=== PATIENT | female | born 1965 | race Caucasian/White ===

== ENCOUNTER → 2021-07-20 12:48 | Outpatient (CLI) | payer MEDICARE, MEDICAID, SELFPAY | PROVIDERS: PCP Family Medicine; Referring Provider Surgery; Visit Provider Family Medicine | DX: L97.825 Non-pressure chronic ulcer of other part of left lower leg with muscle involvement without evidence of necrosis (principal); L97.815 Non-pressure chronic ulcer of other part of right lower leg with muscle involvement without evidence of necrosis; L08.9 Local infection of the skin and subcutaneous tissue, unspecified; M79.661 Pain in right lower leg; M79.662 Pain in left lower leg; L20.9 Atopic dermatitis, unspecified; G89.29 Other chronic pain; M54.9 Dorsalgia, unspecified; Z79.891 Long term (current) use of opiate analgesic; Z72.0 Tobacco use | CPT/HCPCS: 11042; 87070; 87075; 87077; 87102; 87116; 87147; 87185; 87186; 87205; 87206; 99204; 99213 ==

== ENCOUNTER → 2021-08-03 11:33 | Outpatient (CLI) | payer MEDICARE, MEDICAID, SELFPAY | PROVIDERS: PCP Family Medicine; Referring Provider Family Medicine; Visit Provider Family Medicine | DX: L97.825 Non-pressure chronic ulcer of other part of left lower leg with muscle involvement without evidence of necrosis (principal); L97.815 Non-pressure chronic ulcer of other part of right lower leg with muscle involvement without evidence of necrosis; M79.661 Pain in right lower leg; M79.662 Pain in left lower leg; L08.89 Other specified local infections of the skin and subcutaneous tissue; B95.61 Methicillin susceptible Staphylococcus aureus infection as the cause of diseases classified elsewhere; L20.9 Atopic dermatitis, unspecified; G89.29 Other chronic pain; M54.9 Dorsalgia, unspecified; Z79.891 Long term (current) use of opiate analgesic; Z72.0 Tobacco use | CPT/HCPCS: 11042; 87070; 87075; 87077; 87147; 87186; 87205; 99212; 99213 ==

== ENCOUNTER → 2021-08-17 14:03 | Outpatient (CLI) | payer MEDICARE, MEDICAID, SELFPAY | PROVIDERS: PCP Family Medicine; Referring Provider Family Medicine; Visit Provider Family Medicine | DX: L97.825 Non-pressure chronic ulcer of other part of left lower leg with muscle involvement without evidence of necrosis (principal); L97.815 Non-pressure chronic ulcer of other part of right lower leg with muscle involvement without evidence of necrosis; M79.661 Pain in right lower leg; M79.662 Pain in left lower leg; L20.9 Atopic dermatitis, unspecified; G89.29 Other chronic pain; M54.9 Dorsalgia, unspecified; Z79.891 Long term (current) use of opiate analgesic; Z72.0 Tobacco use | CPT/HCPCS: 99212; 99213 ==

== ENCOUNTER → 2021-09-07 13:58 | Outpatient (CLI) | payer MEDICARE, MEDICAID, SELFPAY | PROVIDERS: PCP Family Medicine; Referring Provider Family Medicine; Visit Provider Family Medicine | DX: L97.129 Non-pressure chronic ulcer of left thigh with unspecified severity (principal); S81.801A Unspecified open wound, right lower leg, initial encounter; S81.802A Unspecified open wound, left lower leg, initial encounter; S71.102A Unspecified open wound, left thigh, initial encounter; Z79.891 Long term (current) use of opiate analgesic; L20.9 Atopic dermatitis, unspecified; F17.210 Nicotine dependence, cigarettes, uncomplicated | CPT/HCPCS: 87070; 87075; 87077; 87147; 87186; 87205; 99213 ==

== ENCOUNTER → 2021-09-07 16:44 | Outpatient (ROUT) | payer MEDICARE, SELFPAY | PROVIDERS: PCP Family Medicine; Visit Provider Dermatology | DX: L97.129 Non-pressure chronic ulcer of left thigh with unspecified severity (principal) | CPT/HCPCS: 87070; 87075; 87205 ==

== ENCOUNTER → 2021-09-28 14:08 | Outpatient (CLI) | payer MEDICARE, MEDICAID, SELFPAY | PROVIDERS: PCP Family Medicine; Referring Provider Family Medicine; Visit Provider Family Medicine | DX: Z79.891 Long term (current) use of opiate analgesic (principal); L20.9 Atopic dermatitis, unspecified; L08.89 Other specified local infections of the skin and subcutaneous tissue; L97.825 Non-pressure chronic ulcer of other part of left lower leg with muscle involvement without evidence of necrosis; L97.815 Non-pressure chronic ulcer of other part of right lower leg with muscle involvement without evidence of necrosis; L97.125 Non-pressure chronic ulcer of left thigh with muscle involvement without evidence of necrosis; F17.210 Nicotine dependence, cigarettes, uncomplicated | CPT/HCPCS: 99213 ==

== ENCOUNTER → 2021-10-25 12:31 | Outpatient (ROUT) | payer MEDICARE, SELFPAY | PROVIDERS: PCP Family Medicine; Visit Provider Dermatology | DX: L97.819 Non-pressure chronic ulcer of other part of right lower leg with unspecified severity (principal); L97.129 Non-pressure chronic ulcer of left thigh with unspecified severity | CPT/HCPCS: 87070; 87075; 87077; 87147; 87186; 87205 ==

== ENCOUNTER → 2021-11-01 17:35 | Outpatient (ROUT) | payer MEDICARE, SELFPAY | PROVIDERS: PCP Family Medicine; Visit Provider Dermatology | DX: L08.9 Local infection of the skin and subcutaneous tissue, unspecified (principal) | CPT/HCPCS: 87070; 87075; 87077; 87147; 87186; 87205 ==

== ENCOUNTER → 2021-11-02 13:36 | Outpatient (CLI) | payer MEDICARE, SELFPAY | PROVIDERS: PCP Family Medicine; Referring Provider Family Medicine; Visit Provider Family Medicine | DX: L08.89 Other specified local infections of the skin and subcutaneous tissue (principal); L97.815 Non-pressure chronic ulcer of other part of right lower leg with muscle involvement without evidence of necrosis; L97.825 Non-pressure chronic ulcer of other part of left lower leg with muscle involvement without evidence of necrosis; L20.9 Atopic dermatitis, unspecified; L98.1 Factitial dermatitis; Z79.891 Long term (current) use of opiate analgesic; Z72.0 Tobacco use; M79.605 Pain in left leg | CPT/HCPCS: 29581; 87070; 87075; 87077; 87147; 87186; 87205; 99213 ==

== ENCOUNTER → 2021-11-09 13:10 | Outpatient (CLI) | payer MEDICARE, SELFPAY | PROVIDERS: PCP Family Medicine; Referring Provider Family Medicine; Visit Provider Family Medicine | DX: L97.815 Non-pressure chronic ulcer of other part of right lower leg with muscle involvement without evidence of necrosis (principal); L97.825 Non-pressure chronic ulcer of other part of left lower leg with muscle involvement without evidence of necrosis; L97.125 Non-pressure chronic ulcer of left thigh with muscle involvement without evidence of necrosis; L98.1 Factitial dermatitis; B95.61 Methicillin susceptible Staphylococcus aureus infection as the cause of diseases classified elsewhere; L20.9 Atopic dermatitis, unspecified; Z79.891 Long term (current) use of opiate analgesic; Z72.0 Tobacco use | CPT/HCPCS: 97597; 99213 ==

== ENCOUNTER 2022-10-27 15:32 | Inpatient (IN) | payer MEDICARE, MEDICAID, SELFPAY ==
[2022-10-27] VITALS (16 sets, daily range): BP systolic 135–163; BP diastolic 67–104; PULSE 74–98; RESP 14–24; TEMP 36.4–37; O2SAT 93–97; BMI 22.6; BMI 23.3
--- NOTE | 2022-10-27 15:53 | DI.RAD.S_ITS ---
PROCEDURE: XR TIBIA FUBULA RT 2V INDICATIONS: Soft tissue wound, please evaluate for osteomyelitis. TECHNIQUE: 2 views of the tibia and fibula were acquired. COMPARISON: [facility], CR, XR TIBIA FIBULA RIGHT, 06/21/2022, 11:41. FINDINGS: Bones: No fractures or dislocations. No suspicious bony lesions. Soft tissues: Soft tissue irregularity can be seen involving the medial aspect of the mojica. No radiopaque foreign bodies are seen. IMPRESSION: Soft tissue wound, without latia bony change. If there is strong suspicion for developing osteomyelitis, please consider a dedicated MRI without and with contrast for further evaluation (assuming that there is no contraindication to MRI). Dictated by: Carlos Otero M.D. on 10/27/2022 at 16:14 Approved by: Carlos Otero M.D. on 10/27/2022 at 16:15
--- NOTE | 2022-10-27 16:28 | DI.RAD.S_ITS ---
PROCEDURE: XR CHEST 1V INDICATIONS: feeling ill, likely COPD TECHNIQUE: One view of the chest was acquired. COMPARISON: [facility], CHEST 2 VIEW, 11/18/2009, 9:37. [facility], CHEST 2 VIEW, 09/12/2009, 14:51. FINDINGS: Surgical changes and devices: None. Lungs and pleura: Lungs are clear. No pleural effusions or pneumothorax. Mediastinum: Mediastinal contours appear normal. Heart size is normal. Bones and chest wall: No suspicious bony lesions. Overlying soft tissues appear unremarkable. IMPRESSION: No acute cardiopulmonary process. Dictated by: Karl Zuniga M.D. on 10/27/2022 at 17:58 Approved by: Karl Zuniga M.D. on 10/27/2022 at 17:58
--- NOTE | 2022-10-27 16:51 | ED.WOUNDLAC ---
HPI - Wound/Laceration <Luz Mccurdy PA-C - Last Filed: 10/27/22 18:34> General Chief Complaint: Wound/Laceration Stated Complaint: infected ulcer rt lower leg,sent by [facility] Time Seen by Provider: 10/27/22 16:18 Source: patient Mode of arrival: Ambulatory History of Present Illness HPI narrative: Patient is a 57-year-old female with a history of eczema. She presents with a right lower extremity wound x1.5 years. She reports a history of many areas of eczema that turn into a chronic wounds. This wound has been managed in [place] [employer] by a wound care clinic, although she lives in [place]. Most recently, she received 2 courses of Bactrim for wound infection without improvement. She reports the wound clinic has been using some sort of honey impregnated product covered with Xeroform gauze over the wound. Over the past several days, she is been feeling ill with chills and generalized achiness. She took 2 home COVID tests, both of which were negative. She has a pain management plan with a spine doctor for her chronic back pain. She is a daily smoker. Related Data Home Medications Medication Instructions Recorded Confirmed [BLEACH BATH 5%] 5 % Not Applicable 3XW ##0 01/28/16 10/27/22 acetaminophen 500 mg tablet 500 mg PO TID-QID PRN Pain (Scale 01/28/16 10/27/22 (Tylenol Extra Strength) Score 1-3) ##0 acyclovir 400 mg tablet 400 mg PO QAM ##0 01/28/16 10/27/22 cetirizine 10 mg tablet 10 mg PO QAM ##0 01/28/16 10/27/22 mupirocin 2 % topical ointment 1 applic PRN PRN Rash ##0 01/28/16 10/27/22 pseudoephedrine HCl 30 mg tablet 120 mg PO QAM ##0 01/28/16 10/27/22 albuterol sulfate 90 mcg/actuation 2 puff inhalation Q4-6H PRN 10/27/22 10/27/22 aerosol inhaler Shortness Of Breath Or Wheezing cyclobenzaprine 10 mg tablet 10 mg PO BID PRN Pain (Scale Score 10/27/22 10/27/22 4-6) duloxetine 30 mg capsule,delayed 90 mg PO DAILY 10/27/22 10/27/22 release gabapentin 600 mg tablet 600 mg PO Q6H 10/27/22 10/27/22 meloxicam 15 mg tablet 15 mg PO DAILY 10/27/22 10/27/22 oxycodone-acetaminophen 10 mg-325 1 tab PO Q4-6H PRN pain 10/27/22 10/27/22 mg tablet tizanidine 4 mg tablet 4 mg PO BEDTIME 10/27/22 10/27/22 Allergies Allergy/AdvReac Type Severity Reaction Status Date / Time Iodinated Contrast Media Allergy Severe Anaphylaxis Verified 10/27/22 18:31 citric acid [CITRIC ACID] Allergy Mild IMMEDIATLEY Verified 10/27/22 16:56 EXACERBATES EXCEMA ibuprofen [IBUPROFEN] Allergy Mild BREATHING Verified 10/27/22 16:56 COMPLICATIONS Review of Systems <Luz Mccurdy PA-C - Last Filed: 10/27/22 18:34> Review of Systems ROS Unobtainable: All systems reviewed & are unremarkable except as noted in HPI and below Patient History <Luz Mccurdy PA-C - Last Filed: 10/27/22 18:34> Social History Smoking Status: Current every day smoker Smoking Status: Current every day smoker tobacco type: cigarettes Substance Use Type: does not use Exam <Luz Mccurdy PA-C - Last Filed: 10/27/22 18:34> Narrative Exam Narrative: GENERAL: 57 year old patient appears stated age. Well-developed patient, in no distress. NEURO: AOx3. HEAD: Atraumatic. Normocephalic. EYES: Pupils equal round and reactive. Extraocular motions intact. No scleral icterus. No injection or drainage. ENT: Nose without bleeding or purulent drainage. Airway patent. NECK: Trachea midline. Non tender CARDIOVASCULAR: Regular rate and rhythm with systolic murmur, which patient states she knows about. RESPIRATORY: Breath sounds equal and course bilaterally. No wheezes, rales, or rhonchi. EXTREMITIES: Significant chronic deep wounds from the ankle to 2-3 inches below the knee. Visible muscle sliding through a deep area over the medial lower extremity when she flexes her ankle. Healed areas over her foot with karo skin, 1+ edema. Strong DP pulse. Patient reports foot is always tingly. Initial Vital Signs Initial Vital Signs: Vital Signs Temperature 98.6 F 10/27/22 15:43 Pulse Rate 85 10/27/22 15:43 Respiratory Rate 16 10/27/22 15:43 Blood Pressure 152/82 H 10/27/22 15:43 Pulse Oximetry 93 10/27/22 15:43 Oxygen Delivery Method Room Air 10/27/22 15:43 <Anette Witt DO - Last Filed: 10/28/22 04:36> Initial Vital Signs Initial Vital Signs: Vital Signs Temperature 98.6 F 10/27/22 15:43 Pulse Rate 85 10/27/22 15:43 Respiratory Rate 16 10/27/22 15:43 Blood Pressure 152/82 H 10/27/22 15:43 Pulse Oximetry 93 10/27/22 15:43 Oxygen Delivery Method Room Air 10/27/22 15:43 Course <Luz Mccurdy PA-C - Last Filed: 10/27/22 18:34> Orders Ordered: ED Orders 10/27/22 20:41 CT LE RT wo con Stat Acetaminophen (Acetaminophen 325 Mg Tablet) 650 mg PO Q6H PRN PRN Reason: Fever/Mild Pain (1-3) Hydrocodone Bitart/Acetaminophen (Hydrocodone/Acet 5/325 Tablet) 1 tab PO Q4H PRN PRN Reason: Pain, Moderate (4-6) Last Admin: 10/27/22 23:47 Dose: 1 tab Documented By: CT Enoxaparin Sodium (Enoxaparin 30 Mg/0.3 Ml Syringe) 30 mg SUBCUT DAILY MELL Gabapentin (Gabapentin 600 Mg Tablet) 600 mg PO Q6H MELL Last Admin: 10/28/22 01:30 Dose: 600 mg Documented By: CT Hydromorphone HCl (Hydromorphone 1 Mg Inj) 1 mg IV Q4H PRN PRN Reason: Pain, Severe (7-10) Last Admin: 10/28/22 04:21 Dose: 1 mg Documented By: CT Sodium Chloride (Normal Saline 0.45%) 1,000 mls @ 100 mls/hr IV CONT MELL Last Admin: 10/28/22 00:10 Dose: 100 mls/hr Documented By: CT Cefepime HCl 1 gm/ Sodium (Chloride) 100 mls @ 200 mls/hr IV Q12H MELL Last Infusion: 10/28/22 00:40 Dose: 0 mls/hr Documented By: Admin: 10/28/22 00:10 Dose: 200 mls/hr Documented By: CT Vancomycin HCl (Vancomycin) 1,000 mg in 200 mls @ 200 mls/hr IV Q12H MELL Loratadine (Loratadine 10 Mg Tablet) 10 mg PO DAILY MELL Morphine Sulfate (Morphine 2 Mg/Ml Inj) 1 mg IV Q4HR PRN PRN Reason: Pain, Moderate (4-6) Last Admin: 10/28/22 01:35 Dose: 1 mg Documented By: CT Naloxone HCl (Naloxone 0.4 Mg/Ml Vial) 0.2 mg IV Q2MIN PRN PRN Reason: Opiate Reversal Oxycodone HCl (Oxycodone Ir 5 Mg Tablet) 5 mg PO Q4H PRN PRN Reason: Pain, Severe (7-10) Last Admin: 10/28/22 02:42 Dose: 5 mg Documented By: CT Oxycodone/Acetaminophen (Oxycodone/Acetaminophen 5/325 Tablet) 1 tab PO Q4H PRN PRN Reason: Pain, Severe (7-10) Last Admin: 10/28/22 02:42 Dose: 1 tab Documented By: CT Discontinued Medications Vancomycin HCl/Dextrose (Vancomycin) 1,500 mg in 300 mls @ 200 mls/hr IV NOW ONE Stop: 10/27/22 19:55 Last Infusion: 10/27/22 21:14 Dose: 0 mls/hr Documented By: Admin: 10/27/22 19:44 Dose: 200 mls/hr Documented By: AIMEE Cefepime HCl 2 gm/ Sodium (Chloride) 100 mls @ 200 mls/hr IV NOW ONE Stop: 10/27/22 18:27 Last Infusion: 10/27/22 19:42 Dose: 0 mls/hr Documented By: Admin: 10/27/22 19:12 Dose: 200 mls/hr Documented By: CLARIBEL Lidocaine HCl (Lidocaine Viscous 2% 100 Ml Solution) 15 ml MM NOW ONE Stop: 10/27/22 17:34 Last Admin: 10/27/22 17:57 Dose: 15 ml Documented By: AIMEE Oxycodone HCl (Oxycodone Ir 5 Mg Tablet) 10 mg PO NOW ONE Stop: 10/27/22 16:29 Last Admin: 10/27/22 16:55 Dose: 10 mg Documented By: AIMEE Oxycodone HCl (Oxycodone Ir 5 Mg Tablet) 10 mg PO NOW ONE Stop: 10/27/22 21:37 Last Admin: 10/27/22 21:41 Dose: 10 mg Documented By: AIMEE Vital Signs Vital signs: Vital Signs - 8 hr 10/27/22 21:01 10/27/22 21:02 10/27/22 21:02 Pulse Rate 84 81 Respiratory Rate 20 21 Blood Pressure 135/67 Pulse Oximetry 95 94 10/27/22 21:30 10/27/22 21:30 Pulse Rate 79 Respiratory Rate 17 Blood Pressure 141/68 H Pulse Oximetry 93 <Anette Witt DO - Last Filed: 10/28/22 04:36> Orders Ordered: ED Orders 10/27/22 20:41 CT LE RT wo con Stat Acetaminophen (Acetaminophen 325 Mg Tablet) 650 mg PO Q6H PRN PRN Reason: Fever/Mild Pain (1-3) Hydrocodone Bitart/Acetaminophen (Hydrocodone/Acet 5/325 Tablet) 1 tab PO Q4H PRN PRN Reason: Pain, Moderate (4-6) Last Admin: 10/27/22 23:47 Dose: 1 tab Documented By: CT Enoxaparin Sodium (Enoxaparin 30 Mg/0.3 Ml Syringe) 30 mg SUBCUT DAILY MELL Gabapentin (Gabapentin 600 Mg Tablet) 600 mg PO Q6H MELL Last Admin: 10/28/22 01:30 Dose: 600 mg Documented By: CT Hydromorphone HCl (Hydromorphone 1 Mg Inj) 1 mg IV Q4H PRN PRN Reason: Pain, Severe (7-10) Last Admin: 10/28/22 04:21 Dose: 1 mg Documented By: CT Sodium Chloride (Normal Saline 0.45%) 1,000 mls @ 100 mls/hr IV CONT MELL Last Admin: 10/28/22 00:10 Dose: 100 mls/hr Documented By: CT Cefepime HCl 1 gm/ Sodium (Chloride) 100 mls @ 200 mls/hr IV Q12H MELL Last Infusion: 10/28/22 00:40 Dose: 0 mls/hr Documented By: Admin: 10/28/22 00:10 Dose: 200 mls/hr Documented By: LENNY Vancomycin HCl (Vancomycin) 1,000 mg in 200 mls @ 200 mls/hr IV Q12H MELL Loratadine (Loratadine 10 Mg Tablet) 10 mg PO DAILY MELL Morphine Sulfate (Morphine 2 Mg/Ml Inj) 1 mg IV Q4HR PRN PRN Reason: Pain, Moderate (4-6) Last Admin: 10/28/22 01:35 Dose: 1 mg Documented By: LENNY Naloxone HCl (Naloxone 0.4 Mg/Ml Vial) 0.2 mg IV Q2MIN PRN PRN Reason: Opiate Reversal Oxycodone HCl (Oxycodone Ir 5 Mg Tablet) 5 mg PO Q4H PRN PRN Reason: Pain, Severe (7-10) Last Admin: 10/28/22 02:42 Dose: 5 mg Documented By: LENNY Oxycodone/Acetaminophen (Oxycodone/Acetaminophen 5/325 Tablet) 1 tab PO Q4H PRN PRN Reason: Pain, Severe (7-10) Last Admin: 10/28/22 02:42 Dose: 1 tab Documented By: LENNY Discontinued Medications Vancomycin HCl/Dextrose (Vancomycin) 1,500 mg in 300 mls @ 200 mls/hr IV NOW ONE Stop: 10/27/22 19:55 Last Infusion: 10/27/22 21:14 Dose: 0 mls/hr Documented By: Admin: 10/27/22 19:44 Dose: 200 mls/hr Documented By: AIMEE Cefepime HCl 2 gm/ Sodium (Chloride) 100 mls @ 200 mls/hr IV NOW ONE Stop: 10/27/22 18:27 Last Infusion: 10/27/22 19:42 Dose: 0 mls/hr Documented By: Admin: 10/27/22 19:12 Dose: 200 mls/hr Documented By: CLARIBEL Lidocaine HCl (Lidocaine Viscous 2% 100 Ml Solution) 15 ml MM NOW ONE Stop: 10/27/22 17:34 Last Admin: 10/27/22 17:57 Dose: 15 ml Documented By: AIMEE Oxycodone HCl (Oxycodone Ir 5 Mg Tablet) 10 mg PO NOW ONE Stop: 10/27/22 16:29 Last Admin: 10/27/22 16:55 Dose: 10 mg Documented By: AIMEE Oxycodone HCl (Oxycodone Ir 5 Mg Tablet) 10 mg PO NOW ONE Stop: 10/27/22 21:37 Last Admin: 10/27/22 21:41 Dose: 10 mg Documented By: AIMEE Vital Signs Vital signs: Vital Signs - 8 hr 10/27/22 21:01 10/27/22 21:02 10/27/22 21:02 Pulse Rate 84 81 Respiratory Rate 20 21 Blood Pressure 135/67 Pulse Oximetry 95 94 10/27/22 21:30 10/27/22 21:30 Pulse Rate 79 Respiratory Rate 17 Blood Pressure 141/68 H Pulse Oximetry 93 MDM - Wound/Laceration <Luz Mccurdy PA-C - Last Filed: 10/27/22 18:34> Lab Data 10/27/22 17:26 10/27/22 17:26 Labs: Lab Results 10/27/22 10/27/22 10/27/22 Range/Units 17:10 17:10 17:26 WBC 7.6 (4.5-11.0) X10^3/uL RBC 5.43 H (4.0-5.2) X10^6/uL Hgb 9.0 L (12.0-16.0) g/dL Hct 32.3 L (36-46) % MCV 59.5 L (80-100) fL MCH 16.6 L (26-34) PG MCHC 27.9 L (30-36) % RDW 21.9 H (11.6-14.8) % Plt Count 550 H (150-400) X10^3/uL Neut % (Auto) 65.1 (50-75) % Lymph % (Auto) 24.6 L (25-40) % [place] % (Auto) 8.6 (3-14) % Eos % (Auto) 0.8 L (2-4) % Baso % (Auto) 0.9 (0-2) % Neut # (Auto) 4900 (8773-3349) /uL Lymph # (Auto) 1900 (4288-3222) /uL [place] # (Auto) 600 (0-900) /uL Eos # (Auto) 100 (0-450) /uL Baso # (Auto) 100 (0-100) /uL Plt Morphology Comment RBC Morphology See below Polychromasia 1+ H Hypochromasia 1+ H Anisocytosis 2+ H Microcytosis 2+ H Macrocytosis 1+ H Spherocytes 1+ H Target Cells 2+ H Rouleaux 1+ H ESR 44 H (0-20) MM/HR Sodium (137-145) mmol/L Potassium (3.4-5.1) mmol/L Chloride (98-107) mmol/L Carbon Dioxide (22-32) mmol/L BUN (7-17) mg/dL Creatinine (0.52-1.04) mg/dL Estimated GFR (>60) mL/min BUN/Creatinine Ratio (6-22) Glucose (70-100) mg/dL Lactate (0.7-2.1) mmol/L Calcium (8.4-10.2) mg/dL Total Bilirubin (0.2-1.3) mg/dL AST (14-36) IU/L ALT (<35) IU/L Alkaline Phosphatase (38-126) U/L C-Reactive Protein 1.6 H (<1.0) mg/dL Total Protein (6.3-8.2) g/dL Albumin (3.5-5.0) g/dL Globulin (1.7-4.1) g/dL Albumin/Globulin Ratio (1.0-2.8) Urine Color Urine Appearance Urine pH (4.5-8.0) Ur Specific Moore (1.000-1.035) Urine Protein (Negative) Urine Glucose (UA) (Negative) g/dL Urine Ketones (NEGATIVE) Urine Occult Blood (Negative) Urine Nitrate (Negative) Urine Bilirubin (NEGATIVE) Urine Urobilinogen (0.2) E.U./dL Ur Leukocyte Esterase (NEGATIVE) Urine RBC (0-5/HPF) Urine WBC (0-5/HPF) Ur Squamous Epith Cells (0-5/HPF) Urine Bacteria (None) 10/27/22 10/27/22 10/27/22 Range/Units 17:26 17:26 18:45 WBC (4.5-11.0) X10^3/uL RBC (4.0-5.2) X10^6/uL Hgb (12.0-16.0) g/dL Hct (36-46) % MCV (80-100) fL MCH (26-34) PG MCHC (30-36) % RDW (11.6-14.8) % Plt Count (150-400) X10^3/uL Neut % (Auto) (50-75) % Lymph % (Auto) (25-40) % [place] % (Auto) (3-14) % Eos % (Auto) (2-4) % Baso % (Auto) (0-2) % Neut # (Auto) (8170-2389) /uL Lymph # (Auto) (9030-0979) /uL [place] # (Auto) (0-900) /uL Eos # (Auto) (0-450) /uL Baso # (Auto) (0-100) /uL Plt Morphology Comment RBC Morphology Polychromasia Hypochromasia Anisocytosis Microcytosis Macrocytosis Spherocytes Target Cells Rouleaux ESR (0-20) MM/HR Sodium 138 (137-145) mmol/L Potassium 3.8 (3.4-5.1) mmol/L Chloride 104 (98-107) mmol/L Carbon Dioxide 27 (22-32) mmol/L BUN 16 (7-17) mg/dL Creatinine 0.96 (0.52-1.04) mg/dL Estimated GFR > 60 (>60) mL/min BUN/Creatinine Ratio 16.7 (6-22) Glucose 88 (70-100) mg/dL Lactate 0.8 (0.7-2.1) mmol/L Calcium 9.0 (8.4-10.2) mg/dL Total Bilirubin 0.2 (0.2-1.3) mg/dL AST 45 H (14-36) IU/L ALT 27 (<35) IU/L Alkaline Phosphatase 92 (38-126) U/L C-Reactive Protein (<1.0) mg/dL Total Protein 7.2 (6.3-8.2) g/dL Albumin 3.4 L (3.5-5.0) g/dL Globulin 3.8 (1.7-4.1) g/dL Albumin/Globulin Ratio 0.9 L (1.0-2.8) Urine Color Yellow Urine Appearance Clear Urine pH 5.5 (4.5-8.0) Ur Specific Moore 1.010 (1.000-1.035) Urine Protein Negative (Negative) Urine Glucose (UA) Negative (Negative) g/dL Urine Ketones Negative (NEGATIVE) Urine Occult Blood Negative (Negative) Urine Nitrate Negative (Negative) Urine Bilirubin Negative (NEGATIVE) Urine Urobilinogen 0.2 (0.2) E.U./dL Ur Leukocyte Esterase 1+ H (NEGATIVE) Urine RBC 0-1/hpf (0-5/HPF) Urine WBC 1-5/hpf (0-5/HPF) Ur Squamous Epith Cells 1-5 /hpf (0-5/HPF) Urine Bacteria Few (2-10) H (None) Imaging Data Extremity x-ray #1: Radiologist's Impression: PROCEDURE:? XR TIBIA FUBULA RT 2V ? INDICATIONS:? Soft tissue wound, please evaluate for osteomyelitis. ? TECHNIQUE:? 2 views of the tibia and fibula were acquired.? ? COMPARISON:? [facility], CR, XR TIBIA FIBULA RIGHT, 06/21/2022, 11:41. ? FINDINGS:? ? Bones:? No fractures or dislocations.? No suspicious bony lesions.? ? Soft tissues:? Soft tissue irregularity can be seen involving the medial aspect of the mojica.? No radiopaque foreign bodies are seen.? IMPRESSION:? Soft tissue wound, without latia bony change. ? If there is strong suspicion for developing osteomyelitis, please consider a dedicated MRI without and with contrast for further evaluation (assuming that there is no contraindication to MRI).? ? ? Dictated by: Carlos Otero M.D. on 10/27/2022 at 16:14 ? ? Approved by: Carlos Otero M.D. on 10/27/2022 at 16:15 MDM Narrative Medical decision making narrative: Multiple etiologies for patient's symptoms considered including, but not limited to: Sepsis, necrotizing fasciitis, nonhealing wound. Patient reports feeling quite ill recently, with chills and generalized achiness and fatigue above her baseline. Home COVID test x2 negative. She is afebrile in the emergency room but high clinical suspicion for sepsis given her extensive lower extremity wound. We will check labs, cultures and obtain imaging of the right lower extremity for further planning. Labs without evidence of sepsis. Labs show anemia, I suspect chronic. Wound culture and blood cultures pending. Xray without any gas formation. MRI of extremity ordered for evaluation for osteomyelitis. Of note, patient endorses allergy to iodine contrast. Dr. Witt discussed with hospitalist, who suggests start vanco and cefepime, night doc to admit as she has failed outpatient therapy. <Anette Miryam, DO - Last Filed: 10/28/22 04:36> Lab Data Labs: Lab Results 10/27/22 10/27/22 10/27/22 Range/Units 17:10 17:10 17:26 WBC 7.6 (4.5-11.0) X10^3/uL RBC 5.43 H (4.0-5.2) X10^6/uL Hgb 9.0 L (12.0-16.0) g/dL Hct 32.3 L (36-46) % MCV 59.5 L (80-100) fL MCH 16.6 L (26-34) PG MCHC 27.9 L (30-36) % RDW 21.9 H (11.6-14.8) % Plt Count 550 H (150-400) X10^3/uL Neut % (Auto) 65.1 (50-75) % Lymph % (Auto) 24.6 L (25-40) % [place] % (Auto) 8.6 (3-14) % Eos % (Auto) 0.8 L (2-4) % Baso % (Auto) 0.9 (0-2) % Neut # (Auto) 4900 (2745-4872) /uL Lymph # (Auto) 1900 (4413-5937) /uL [place] # (Auto) 600 (0-900) /uL Eos # (Auto) 100 (0-450) /uL Baso # (Auto) 100 (0-100) /uL Plt Morphology Comment RBC Morphology See below Polychromasia 1+ H Hypochromasia 1+ H Anisocytosis 2+ H Microcytosis 2+ H Macrocytosis 1+ H Spherocytes 1+ H Target Cells 2+ H Rouleaux 1+ H ESR 44 H (0-20) MM/HR Sodium (137-145) mmol/L Potassium (3.4-5.1) mmol/L Chloride (98-107) mmol/L Carbon Dioxide (22-32) mmol/L BUN (7-17) mg/dL Creatinine (0.52-1.04) mg/dL Estimated GFR (>60) mL/min BUN/Creatinine Ratio (6-22) Glucose (70-100) mg/dL Lactate (0.7-2.1) mmol/L Calcium (8.4-10.2) mg/dL Total Bilirubin (0.2-1.3) mg/dL AST (14-36) IU/L ALT (<35) IU/L Alkaline Phosphatase (38-126) U/L C-Reactive Protein 1.6 H (<1.0) mg/dL Total Protein (6.3-8.2) g/dL Albumin (3.5-5.0) g/dL Globulin (1.7-4.1) g/dL Albumin/Globulin Ratio (1.0-2.8) Urine Color Urine Appearance Urine pH (4.5-8.0) Ur Specific Moore (1.000-1.035) Urine Protein (Negative) Urine Glucose (UA) (Negative) g/dL Urine Ketones (NEGATIVE) Urine Occult Blood (Negative) Urine Nitrate (Negative) Urine Bilirubin (NEGATIVE) Urine Urobilinogen (0.2) E.U./dL Ur Leukocyte Esterase (NEGATIVE) Urine RBC (0-5/HPF) Urine WBC (0-5/HPF) Ur Squamous Epith Cells (0-5/HPF) Urine Bacteria (None) 10/27/22 10/27/22 10/27/22 Range/Units 17:26 17:26 18:45 WBC (4.5-11.0) X10^3/uL RBC (4.0-5.2) X10^6/uL Hgb (12.0-16.0) g/dL Hct (36-46) % MCV (80-100) fL MCH (26-34) PG MCHC (30-36) % RDW (11.6-14.8) % Plt Count (150-400) X10^3/uL Neut % (Auto) (50-75) % Lymph % (Auto) (25-40) % [place] % (Auto) (3-14) % Eos % (Auto) (2-4) % Baso % (Auto) (0-2) % Neut # (Auto) (6043-7474) /uL Lymph # (Auto) (8294-7594) /uL [place] # (Auto) (0-900) /uL Eos # (Auto) (0-450) /uL Baso # (Auto) (0-100) /uL Plt Morphology Comment RBC Morphology Polychromasia Hypochromasia Anisocytosis Microcytosis Macrocytosis Spherocytes Target Cells Rouleaux ESR (0-20) MM/HR Sodium 138 (137-145) mmol/L Potassium 3.8 (3.4-5.1) mmol/L Chloride 104 (98-107) mmol/L Carbon Dioxide 27 (22-32) mmol/L BUN 16 (7-17) mg/dL Creatinine 0.96 (0.52-1.04) mg/dL Estimated GFR > 60 (>60) mL/min BUN/Creatinine Ratio 16.7 (6-22) Glucose 88 (70-100) mg/dL Lactate 0.8 (0.7-2.1) mmol/L Calcium 9.0 (8.4-10.2) mg/dL Total Bilirubin 0.2 (0.2-1.3) mg/dL AST 45 H (14-36) IU/L ALT 27 (<35) IU/L Alkaline Phosphatase 92 (38-126) U/L C-Reactive Protein (<1.0) mg/dL Total Protein 7.2 (6.3-8.2) g/dL Albumin 3.4 L (3.5-5.0) g/dL Globulin 3.8 (1.7-4.1) g/dL Albumin/Globulin Ratio 0.9 L (1.0-2.8) Urine Color Yellow Urine Appearance Clear Urine pH 5.5 (4.5-8.0) Ur Specific Moore 1.010 (1.000-1.035) Urine Protein Negative (Negative) Urine Glucose (UA) Negative (Negative) g/dL Urine Ketones Negative (NEGATIVE) Urine Occult Blood Negative (Negative) Urine Nitrate Negative (Negative) Urine Bilirubin Negative (NEGATIVE) Urine Urobilinogen 0.2 (0.2) E.U./dL Ur Leukocyte Esterase 1+ H (NEGATIVE) Urine RBC 0-1/hpf (0-5/HPF) Urine WBC 1-5/hpf (0-5/HPF) Ur Squamous Epith Cells 1-5 /hpf (0-5/HPF) Urine Bacteria Few (2-10) H (None) MDM Narrative Medical decision making narrative: Multiple etiologies for patient's symptoms considered including, but not limited to: Sepsis, necrotizing fasciitis, nonhealing wound. Patient reports feeling quite ill recently, with chills and generalized achiness and fatigue above her baseline. Home COVID test x2 negative. She is afebrile in the emergency room but high clinical suspicion for sepsis given her extensive lower extremity wound. We will check labs, cultures and obtain imaging of the right lower extremity for further planning. Labs without evidence of sepsis. Labs show anemia, I suspect chronic. Wound culture and blood cultures pending. Xray without any gas formation. MRI of extremity ordered for evaluation for osteomyelitis. Of note, patient endorses allergy to iodine contrast. Dr. Witt discussed with hospitalist, who suggests start vanco and cefepime, night doc to admit as she has failed outpatient therapy. Dr. Witt-I received sign-out from a PC of seen and evaluated patient my self. I actually spoke with Dr. Smith briefly he requested cefepime and vancomycin agreed with an MRI. Patient is anaphylactic to IV contrast so CT was not done. It is an acute on chronic wound with an underlying cellulitis. No evidence of sepsis. How ever wound is quite extensive and impressive. Dr. Patel, hospitalist request CT noncontrast before accepting. CT does not show osteomyelitis not able to see any abscess without contrast. Possible myositis necrotizing fasciitis can not be excluded. Unlikely necrotizing fasciitis at this time vitals are stable no leukocytosis and normal lactic acid. Pain is also not out of proportion. Dr. Patel, accepts patient. Discharge Plan Departure Patient Disposition: Admitted As Inpatient Clinical Impression: Chronic wound of extremity, Wound infection Admit Date/Time: 10/27/22 21:43 Admit Provider: Solis Patel <Anette Witt, DO - Last Filed: 10/28/22 04:36> Cosign ED Attending Cosignature Attestation: I was immediately available in the department for consultation. Documentation has been reviewed.
[2022-10-27] MEDS: OXYCODONE IR 5 MG TABLET 10 MG PO ×2 (16:55→21:41)
[2022-10-27 17:36] LABS: Basophils Absolute Auto 100 /uL (0-100); Basophils Percent Auto 0.9 % (0-2); Eosinophils Absolute Auto 100 /uL (0-450); Eosinophils Percent Auto 0.8 % (2-4); Hematocrit 32.3 % (36-46); Lymphocytes Absolute Auto 1900 /uL (1100-4500); Lymphocytes Percent Auto 24.6 % (25-40); Mean Corpuscular HGB Conc 27.9 % (30-36); Mean Corpuscular Hemoglobin 16.6 PG (26-34); Mean Corpuscular Volume 59.5 fL (80-100); Monocytes Absolute Auto 600 /uL (0-900); Monocytes Percent Auto 8.6 % (3-14); Neutrophils Absolute Auto 4900 /uL (1500-7000); Neutrophils Percent Auto 65.1 % (50-75); Platelet Count 550 X10^3/uL (150-400); Red Blood Cell Count 5.43 X10^6/uL (4.0-5.2); Red Cell Distribution Width 21.9 % (11.6-14.8); White Blood Cell Count 7.6 X10^3/uL (4.5-11.0)
[2022-10-27 17:49] LABS: Lactate (Lactic Acid) 0.8 mmol/L (0.7-2.1)
[2022-10-27 17:51] LABS: Alanine Aminotransferase 27 IU/L (<35); Albumin 3.4 g/dL (3.5-5.0); Albumin Globulin Ratio 0.9 (1.0-2.8); Alkaline Phosphatase 92 U/L (38-126); Aspartate Aminotransferase 45 IU/L (14-36); BUN Creatinine Ratio 16.7 (6-22); Bilirubin Total 0.2 mg/dL (0.2-1.3); Blood Urea Nitrogen 16 mg/dL (7-17); Carbon Dioxide 27 mmol/L (22-32); Chloride 104 mmol/L (98-107); Estimated Glomerular Filt Rate > 60 mL/min (>60); Globulin 3.8 g/dL (1.7-4.1); Glucose 88 mg/dL (70-100); HEMOLYSIS < 15 (0-50); Potassium 3.8 mmol/L (3.4-5.1); Sodium 138 mmol/L (137-145); Total Protein 7.2 g/dL (6.3-8.2)
[2022-10-27 17:53] LABS: Add Manual Diff / Slide Review SLIDE REVIEW
[2022-10-27] MEDS: LIDOCAINE VISCOUS 2% 100 ML SOLUTION 15 ML MM (17:57)
[2022-10-27 18:04] LABS: Anisocytosis 2+; Hypochromasia 1+; Macrocytosis 1+; Microcytosis 2+; Polychromasia 1+; Target Cells 2+
[2022-10-27 18:07] LABS: Rouleaux 1+; Spherocytes 1+
--- NOTE | 2022-10-27 18:16 | DI.MRI.S_ITS ---
PROCEDURE: MR LOWER LEG RT WO/W CON INDICATIONS: extensive wounds, eval for osteomyelitis TECHNIQUE: Noncontrast coronal T1 spin echo and STIR, sagittal T1 spin echo with fat saturation and STIR, axial T1 spin echo and T2 fast spin echo with fat saturation. After the administration of contrast, axial/sagittal/coronal T1 spin echo with fat saturation through the right lower leg. COMPARISON: None. FINDINGS: Image quality: Images are mildly degraded by patient motion despite repeat sequences being acquired. Diagnostic information is obtained. Bones: The visualized bone marrow demonstrates normal signal on all sequences. The overlying cortex appears intact. No abnormal intraosseous enhancement. Soft tissues: There is diffuse nonspecific subcutaneous edema and enhancement throughout the lower leg it. Areas of skin irregularity are seen consistent with the reported wounds. No well-defined drainable fluid collection is seen to suggest abscess formation. There is mild edema and enhancement within the distal medial portion of the soleus muscle. No enhancing soft tissue mass. The scanned muscles otherwise demonstrate normal overall bulk and internal signal. No definite soft tissue gas is seen radiographically. IMPRESSION: 1. Areas of skin ulceration and subcutaneous edema are seen in the right lower leg compatible with the clinically reported skin margins. No drainable fluid collection or abscess is seen. 2. No MR evidence of osteomyelitis. 3. Focal intramuscular edema at the distal medial aspect of the soleus muscle just proximal to the myotendinous junction is suspicious for myositis. Approved by: Sulaiman Raines M.D. on 10/28/2022 at 10:54
[2022-10-27 18:40] LABS: C-Reactive Protein Quant 1.6 mg/dL (<1.0)
[2022-10-27 18:54] LABS: Erythrocyte Sedimentation Rate 44 MM/HR (0-20)
[2022-10-27 18:58] LABS: Appearance Urine UA CLEAR; Bilirubin Urine UA NEGATIVE (NEGATIVE); Color Urine UA YELLOW; Glucose Urine UA NEGATIVE (Negative); Ketones Urine UA NEGATIVE (NEGATIVE); Leukocyte Esterase Urine UA 1+ (NEGATIVE); Nitrite Urine UA NEGATIVE (Negative); Occult Blood Urine UA NEGATIVE (Negative); Protein Urine UA NEGATIVE (Negative); Urobilinogen Urine UA 0.2 E.U./dL (0.2)
[2022-10-27 18:59] LABS: pH Urine UA 5.5 (4.5-8.0)
[2022-10-27 19:09] LABS: Bacteria Urine Few (2-10); RBC Urine 0-1/HPF (0-5/HPF); Squamous Epithelial Cell Urine 1-5 /HPF (0-5/HPF); WBC Urine 1-5/HPF (0-5/HPF)
[2022-10-27] MEDS: CEFEPIME 2 GM in SODIUM CHLORIDE 0.9% 100 ML IV (19:12)
[2022-10-27] MEDS: VANCOMYCIN 1,500 MG/300 ML PIGGYBACK 200 MG IV (19:44)
--- NOTE | 2022-10-27 20:41 | DI.CT.S_ITS ---
PROCEDURE: CT LE RT WO CON INDICATIONS: possible osteo TECHNIQUE: Noncontrast 3-mm axial sections acquired from the distal tibial shaft to the talar dome, with coronal and sagittal reformats.. COMPARISON: [facility], CR, XR TIBIA FIBULA RT 2V, 10/27/2022, 16:31. FINDINGS: Image quality: Excellent. Bones: No discrete bony erosions or periosteal reaction. No fractures or dislocation. Soft tissues: There is subcutaneous edema and skin thickening most prominent within the medial lower leg. There are associated areas of soft tissue irregularity suggestive of ulcerations medially. There is effacement of the superficial fascia of the posterior compartment medially with associated muscle edema. No discrete loculated fluid collections identified to suggest an abscess but evaluation is limited in the absence of intravenous contrast. No soft tissue gas. IMPRESSION: 1. No CT evidence of osteomyelitis. 2. Suspected soft tissue ulceration medially in the distal lower leg. No definite abscess collection is identified but evaluation is limited in the absence of intravenous contrast. 3. Effacement of the superficial fascia medially in the posterior compartment with associated muscle edema compatible with a myositis. Necrotizing fasciitis, a clinical diagnosis, cannot be excluded. Dictated by: Saurabh Gimenez M.D. on 10/27/2022 at 21:23 Approved by: Saurabh Gimenez M.D. on 10/27/2022 at 21:30
--- NOTE | 2022-10-27 22:19 | PM.HP.1 ---
History of Present Illness History of Present Illness Date Patient Seen: 10/27/22 Time Patient Seen: 11:30 Chief complaint: infected ulcer rt lower leg,sent by [facility] Narrative: Patient is a 57-year-old female with a history of eczema.? She presents with a right lower extremity wound x1.5 years.? She reports a history of many areas of eczema that turn into a chronic wounds.? She goes to woud clinic.? Most recently, she received 2 courses of Bactrim for wound infection without improvement.? She reports the wound clinic has been using some sort of honey impregnated product covered with Xeroform gauze over the wound.? Over the past several days, she is been feeling ill with chills and generalized achiness.? She took 2 home COVID tests, both of which were negative.? . [facility] Social History Smoking Status: Current every day smoker Meds Home Medications and Allergies Home Medications Medication Instructions Recorded Confirmed Type [BLEACH BATH 5%] ##0 01/28/16 History acetaminophen 500 mg tablet PRN ##0 01/28/16 History acyclovir 400 mg tablet ##0 01/28/16 History cetirizine 10 mg tablet ##0 01/28/16 History doxycycline hyclate 100 mg tablet ##0 01/28/16 History hydroxyzine HCl 10 mg tablet ##0 01/28/16 History mupirocin 2 % topical ointment ##0 01/28/16 History mycophenolate sodium 360 mg ##0 01/28/16 History tablet,delayed release (Myfortic) naproxen sodium 220 mg tablet ##0 01/28/16 History oxycodone-acetaminophen 5 mg-325 ##0 01/28/16 History mg tablet pseudoephedrine HCl 30 mg tablet ##0 01/28/16 History triamcinolone acetonide 0.1 % ##0 01/28/16 History topical cream Allergies Allergy/AdvReac Type Severity Reaction Status Date / Time Iodinated Contrast Media Allergy Severe Anaphylaxis Verified 10/27/22 18:31 citric acid [CITRIC ACID] Allergy Mild IMMEDIATLEY Verified 10/27/22 16:56 EXACERBATES EXCEMA ibuprofen [IBUPROFEN] Allergy Mild BREATHING Verified 10/27/22 16:56 COMPLICATIONS Review of Systems Review of Systems Narrative: negative except what was mentioned in the HPI Exam Vital Signs (past 8 hours): - 10/27/22 15:43 10/27/22 17:20 10/27/22 17:26 Temperature 98.6 F Pulse Rate 85 88 Respiratory Rate 16 14 Blood Pressure 152/82 H 137/85 Pulse Oximetry 93 Oxygen Delivery Method Room Air 10/27/22 17:26 10/27/22 17:30 10/27/22 17:30 Temperature Pulse Rate 81 98 H Respiratory Rate 17 20 Blood Pressure 163/104 H Pulse Oximetry 94 95 Oxygen Delivery Method 10/27/22 18:00 10/27/22 18:00 10/27/22 18:45 Temperature Pulse Rate 74 93 H Respiratory Rate 24 Blood Pressure 142/68 H Pulse Oximetry 94 Oxygen Delivery Method 10/27/22 18:47 10/27/22 18:47 10/27/22 19:00 Temperature Pulse Rate 78 Respiratory Rate 16 Blood Pressure 149/82 H 143/75 H Pulse Oximetry 93 Oxygen Delivery Method 10/27/22 19:00 10/27/22 19:30 10/27/22 19:30 Temperature Pulse Rate 79 76 Respiratory Rate 22 18 Blood Pressure 149/70 H Pulse Oximetry 93 94 Oxygen Delivery Method 10/27/22 20:00 10/27/22 20:00 10/27/22 20:30 Temperature Pulse Rate 76 Respiratory Rate 24 Blood Pressure 146/75 H 135/73 Pulse Oximetry 93 Oxygen Delivery Method 10/27/22 20:30 10/27/22 21:01 10/27/22 21:02 Temperature Pulse Rate 86 84 Respiratory Rate 24 20 Blood Pressure 135/67 Pulse Oximetry 93 95 Oxygen Delivery Method 10/27/22 21:02 10/27/22 21:30 10/27/22 21:30 Temperature Pulse Rate 81 79 Respiratory Rate 21 17 Blood Pressure 141/68 H Pulse Oximetry 94 93 Oxygen Delivery Method Oxygen Delivery Method Room Air Const General: cooperative Neck Neck: normal visual inspection Chest Chest: normal inspection of the chest Resp Auscultation: clear to auscultation bilaterally Cardio Rate: regular rate Rhythm: regular rhythm GI Inspection: normal to inspection Skin Other: right lower ext wound and erythema Neuro General: patient alert, patient awake and patient oriented x3 Objective Labs 10/27/22 17:26 10/27/22 17:26 Labs: Laboratory Results - last 24 hr 10/27/22 10/27/22 10/27/22 17:10 17:10 17:26 WBC 7.6 RBC 5.43 H Hgb 9.0 L Hct 32.3 L MCV 59.5 L MCH 16.6 L MCHC 27.9 L RDW 21.9 H Plt Count 550 H Neut % (Auto) 65.1 Lymph % (Auto) 24.6 L [place] % (Auto) 8.6 Eos % (Auto) 0.8 L Baso % (Auto) 0.9 Neut # (Auto) 4900 Lymph # (Auto) 1900 [place] # (Auto) 600 Eos # (Auto) 100 Baso # (Auto) 100 Plt Morphology Comment RBC Morphology See below Polychromasia 1+ H Hypochromasia 1+ H Anisocytosis 2+ H Microcytosis 2+ H Macrocytosis 1+ H Spherocytes 1+ H Target Cells 2+ H Rouleaux 1+ H ESR 44 H Sodium Potassium Chloride Carbon Dioxide BUN Creatinine Estimated GFR BUN/Creatinine Ratio Glucose Lactate Calcium Total Bilirubin AST ALT Alkaline Phosphatase C-Reactive Protein 1.6 H Total Protein Albumin Globulin Albumin/Globulin Ratio Urine Color Urine Appearance Urine pH Ur Specific [place] Urine Protein Urine Glucose (UA) Urine Ketones Urine Occult Blood Urine Nitrate Urine Bilirubin Urine Urobilinogen Ur Leukocyte Esterase Urine RBC Urine WBC Ur Squamous Epith Cells Urine Bacteria 10/27/22 10/27/22 10/27/22 17:26 17:26 18:45 WBC RBC Hgb Hct MCV MCH MCHC RDW Plt Count Neut % (Auto) Lymph % (Auto) [place] % (Auto) Eos % (Auto) Baso % (Auto) Neut # (Auto) Lymph # (Auto) [place] # (Auto) Eos # (Auto) Baso # (Auto) Plt Morphology Comment RBC Morphology Polychromasia Hypochromasia Anisocytosis Microcytosis Macrocytosis Spherocytes Target Cells Rouleaux ESR Sodium 138 Potassium 3.8 Chloride 104 Carbon Dioxide 27 BUN 16 Creatinine 0.96 Estimated GFR > 60 BUN/Creatinine Ratio 16.7 Glucose 88 Lactate 0.8 Calcium 9.0 Total Bilirubin 0.2 AST 45 H ALT 27 Alkaline Phosphatase 92 C-Reactive Protein Total Protein 7.2 Albumin 3.4 L Globulin 3.8 Albumin/Globulin Ratio 0.9 L Urine Color Yellow Urine Appearance Clear Urine pH 5.5 Ur Specific [place] 1.010 Urine Protein Negative Urine Glucose (UA) Negative Urine Ketones Negative Urine Occult Blood Negative Urine Nitrate Negative Urine Bilirubin Negative Urine Urobilinogen 0.2 Ur Leukocyte Esterase 1+ H Urine RBC 0-1/hpf Urine WBC 1-5/hpf Ur Squamous Epith Cells 1-5 /hpf Urine Bacteria Few (2-10) H Assessment & Plan Assessment & Plan narrative: 57 y/o F: # right lower ext infected wound and celluitis: vanc and zosyn, follow cultures , wound care. CT of the leg negative for osteo per ED MD # hx of eczema: baseline # full code
[2022-10-27] MEDS: HYDROCODONE/ACET 5/325 TABLET 1 TAB PO (23:47)
[2022-10-28] VITALS (11 sets, daily range): BP systolic 130–157; BP diastolic 69–96; PULSE 72–106; RESP 16–19; TEMP 36.4–37.1; O2SAT 90–97
[2022-10-28] MEDS: SODIUM CHLORIDE 0.45% 1,000 ML 100 ML IV ×2 (00:10→06:14)
[2022-10-28] MEDS: CEFEPIME 1 GM in SODIUM CHLORIDE 0.9% 100 ML IV ×3 (00:10→22:48)
[2022-10-28] MEDS: GABAPENTIN 600 MG TABLET PO ×4 (01:30→20:05)
[2022-10-28] MEDS: MORPHINE 2 MG/ML INJ 1 MG IV ×2 (01:35→08:39)
[2022-10-28] MEDS: OXYCODONE IR 5 MG TABLET PO ×2 (02:42→07:15)
[2022-10-28] MEDS: OXYCODONE/ACETAMINOPHEN 5/325 TABLET 1 TAB PO ×2 (02:42→07:14)
[2022-10-28] MEDS: HYDROMORPHONE 1 MG INJ IV ×5 (04:21→17:21)
[2022-10-28 04:55] LABS: Basophils Absolute Auto 100 /uL (0-100); Basophils Percent Auto 1.2 % (0-2); Eosinophils Absolute Auto 200 /uL (0-450); Eosinophils Percent Auto 2.6 % (2-4); Hematocrit 31.3 % (36-46); Hemoglobin 8.8 g/dL (12.0-16.0); Lymphocytes Absolute Auto 1700 /uL (1100-4500); Lymphocytes Percent Auto 27.4 % (25-40); Mean Corpuscular HGB Conc 28.2 % (30-36); Mean Corpuscular Hemoglobin 17.2 PG (26-34); Mean Corpuscular Volume 60.9 fL (80-100); Monocytes Absolute Auto 600 /uL (0-900); Neutrophils Absolute Auto 3600 /uL (1500-7000); Neutrophils Percent Auto 58.8 % (50-75); Platelet Count 512 X10^3/uL (150-400); Red Blood Cell Count 5.14 X10^6/uL (4.0-5.2); Red Cell Distribution Width 21.9 % (11.6-14.8); White Blood Cell Count 6.1 X10^3/uL (4.5-11.0)
[2022-10-28 04:57] LABS: Add Manual Diff / Slide Review SLIDE REVIEW
[2022-10-28 04:58] LABS: BUN Creatinine Ratio 14.1 (6-22); Blood Urea Nitrogen 11 mg/dL (7-17); Calcium 8.7 mg/dL (8.4-10.2); Carbon Dioxide 27 mmol/L (22-32); Chloride 106 mmol/L (98-107); Estimated Glomerular Filt Rate > 60 mL/min (>60); Glucose 97 mg/dL (70-100); HEMOLYSIS < 15 (0-50); Sodium 139 mmol/L (137-145)
[2022-10-28] MEDS: HYDROCODONE/ACET 5/325 TABLET 1 TAB PO ×2 (06:10→10:39)
--- NOTE | 2022-10-28 06:12 | PC.WOUNDPHOT ---
Addendum entered by Mikki Case R.N. 10/28/22 06:14: right leg Original Note: right hand
[2022-10-28] MEDS: VANCOMYCIN 1,000 MG/200 ML PIGGYBACK 200 MG IV (06:14)
[2022-10-28 06:40] LABS: Anisocytosis 2+; Hypochromasia 1+; Microcytosis 2+; Target Cells 1+
[2022-10-28] MEDS: LORATADINE 10 MG TABLET PO (08:39)
[2022-10-28] MEDS: ENOXAPARIN 30 MG/0.3 ML SYRINGE SUBCUT (08:40)
[2022-10-28] MEDS: OXYCODONE IR 10 MG TABLET PO ×2 (11:16→20:05)
--- NOTE | 2022-10-28 11:18 | CM.DANOTE ---
Patient is a 57 yo female who was admitted on 10/27/22 for Cellulitis of leg ulcer. Pt has MCR for insurance and her PCP is Dr. Francisco Pimentel. EMR was reviewed. Per MD, pt has hx of eczema that chronically turns into wounds and failed outpt PO abx and now admitted for cellulitis of ulcer to her leg and IV-Abx and pain management. Pt has a hx of outpt [facility] last year. SW met bedside with pt and explained role and she clearly was quite painful with any movement and attempting to eat for nourishment and wound healing. Pt confirms she lives alone in [place] but near a lot of supportive family who assist as needed. Pt is typically independent with ADL's but family provides transport as she cannot drive with her ulcerated right leg. Pt states when she was going to [facility], her family drives because many times they have had to do I&D of her leg and very painful. Pt denies any hx of SNF and states she prefers not to do HH RN as other people tend to unintentionally cause pain during dressing changes and her preference is outpt clinic and doing dressing changes herself. SW called [facility] and alerted them that pt likely will need outpt f/u in their clinic and they have not seen pt for about a year and will follow for possible MD to place orders for Wound Consult. Wound Clinic will call pt as well to discuss outpt appointments. Plan: SW to follow closely to confirm if pt will be safe for d/c home with family support and outpt f/u and r/o IV-Abx at d/c and any further identified discharge planning needs. BLANCA Booth Discharge Planning/Care Management CM Discharge Assessment Start: 10/28/22 11:16 Freq: Status: Active Protocol: Document 10/28/22 11:16 BF (Rec: 10/28/22 11:17 BF [id number]) Discharge Planning Assessment Assigned Kitchen Help Handyman BLANCA Albright DPOA/Assigned Designee Name none Advance Directives? No Advance Directives on File No History Provided By Patient,Medical Record Has Patient been admitted in last 30 No days? Prior Living Arrangements Mobile home Household Members none Type of transporation used prior to Relies on Others admit Independent with ADL's Yes Is patient alert and oriented? Yes Caregiver for Another No Barriers to Discharge No Discharge Plan Home Transportation Arrangement Family will provide transport at d/c Referrals Initiated None needed Additional Comment Pt declines HH and SNF Whiteboard Updated in Patient Room with Yes name and ext. # of Kitchen Help Handyman Review Status In Process Please Provide Date Initial DC 10/28/22 Assessment Was Performed Next Review Type Continued Stay Review
[2022-10-28] MEDS: SODIUM CHLORIDE 0.9% 1,000 ML 100 ML IV (12:44)
[2022-10-28] MEDS: DULOXETINE 30 MG CAPSULE 90 MG PO (13:33)
[2022-10-28] MEDS: VANCOMYCIN 750 MG/150 ML PIGGYBACK 150 MG IV ×2 (15:00→22:10)
[2022-10-28] MEDS: LIDOCAINE 5% OINT 35 GM 1 APPLIC TOP (17:20)
--- NOTE | 2022-10-28 17:43 | PC.NURSE ---
Patient received lying in bed moaning. She reports pain to RLE unbearable but is able to tolerate breakfast and ambulate with assist to BR. She is made NPO after MRI this a.m. of RLE. She is made NPO after breakfast for surgical consult. After results of MRI and surgical consult, patient is able to eat and wound care consult placed. She declines putting any dressing or covering over oozing open wound to RLE, however continuously requests to cover her wound with lidocaine. Pt is tearful and reports the pain is unmanageable but per Flacc socre pain appears to be releived after prn pain medications and she is able to sleep.She is tearful about not being able to go out of the hospital and smoke.Per wound care PA consulting with MD Brooks, agreeable to lidocaine topical. discussed options with pharmacy and ordered x1 to assess if it is actually effective in managing pain. In between pain medications patient is nodding off in middle of sentences and sleeping immediately after crying and saying I can't take it anymore She also states that when she is frustrated she becomes emotional and cries. She tolerates IV antibiotics well. Cultures pending. Viral swab to wound completed and pending. Continuous monitoring.
[2022-10-28] MEDS: ONDANSETRON 4 MG/2 ML INJ IV (18:54)
--- NOTE | 2022-10-28 20:37 | P.PN_ITS ---
Subjective Subjective Date Patient Seen: 10/28/22 Time Patient Seen: 08:00 Interval history: She appears comfortable, but does state pain is not well controlled. Nurse notes she is able to sleep, but patient states she has slept poorly. More history is obtained from the patient. She has had chronic wounds for years, most of her life according to her. She was previously seen years ago at she says, records not able to be obtained after request, but was too expensive to continue there. She thought she might have had ulcerated eczema?, and possibly was on some immune therapy but can not name it. She has seen wound care here and in [place]. She has a diagnosis of possible atopic dermatitis with superimposed vesiculobullous impetigo. I am not sure if either of these diagnoses explain her current presentation. She notes that a previous physician was concerned about self inflicted harm as the cause her wounds, her previous wound care notes this from Dr. Castaneda, his note states when she was in [place] [employer] her wound improved, but then when out of boot it worsened which he suspected was due to [employer] protecting from self injury. She has not followed up with wound care there after he recommended psych eval. Exam Vital Signs (past 8 hours): - 10/28/22 14:14 10/28/22 14:00 10/28/22 18:00 Temperature 98.4 F Pulse Rate 106 H Respiratory Rate 19 Blood Pressure 149/79 H Pulse Oximetry 94 94 90 L Oxygen Delivery Method Room Air Room Air Oxygen Flow Rate 0 10/28/22 20:07 Temperature 97.9 F Pulse Rate 82 Respiratory Rate 16 Blood Pressure 130/69 Pulse Oximetry 90 L Oxygen Delivery Method Oxygen Flow Rate Oxygen Delivery Method Room Air Oxygen Flow Rate 0 Narrative Exam Narrative: GEN: no acute distress CV: regular rate and rhythm PULM: clear bilaterally ABD: soft, nontender SKIN: multiple dry shallow ulcers on her extremities, her right lower extremity below the knee has circumferential erythematous wounds that encompass a significant part of her leg below the knee and there are areas of deep ulceration with visible muscle, there is pus from multiple ulcerations Objective Labs 10/28/22 03:50 10/28/22 03:50 Labs: Laboratory Results - last 24 hr 10/28/22 10/28/22 03:50 03:50 WBC 6.1 RBC 5.14 Hgb 8.8 L Hct 31.3 L MCV 60.9 L MCH 17.2 L MCHC 28.2 L RDW 21.9 H Plt Count 512 H Neut % (Auto) 58.8 Lymph % (Auto) 27.4 [place] % (Auto) 10.0 Eos % (Auto) 2.6 Baso % (Auto) 1.2 Neut # (Auto) 3600 Lymph # (Auto) 1700 [place] # (Auto) 600 Eos # (Auto) 200 Baso # (Auto) 100 RBC Morphology See below Hypochromasia 1+ H Anisocytosis 2+ H Microcytosis 2+ H Target Cells 1+ H Sodium 139 Potassium 4.0 Chloride 106 Carbon Dioxide 27 BUN 11 Creatinine 0.78 Estimated GFR > 60 BUN/Creatinine Ratio 14.1 Glucose 97 Calcium 8.7 PFSH Social History household members: none Smoking Status: Current every day smoker Assessment & Plan Assessment & Plan narrative: 1. Infected right leg wound with chronic ulcers -the etiology of her ulcers remains unclear -she has had workup in multiple institutions with not clear diagnosis, and no recent follow up with wound care or derm -etiologies considered include eczema, atopic dermatitis, and self inflicted -her chronic wound is now acutely infected -mri imaging shows no bone involvement or abscess -imaging does show concern for possible myositis -will empirically treat her with vanc, cefepime, fluconazole -did get bacterial swab -get viral swab for vzv, hsv -surgery consulted to consider debridement -wound care consulted to assist with management of possible debridement and question of need for wound vac -have requested from wound care two biopsies, both of the ulcer border, one sent for path, one sent for cultures -patient states she is in significant pain, ordered home dose of oxycodone 10mg, with dilaudid IV for breakthrough -she is requesting topical lidocaine for pain control, have ordered her one dose of cream, but given wound severity do think she is at risk of skin irritation and systemic absorption if she takes lidocaine frequently
[2022-10-29] VITALS (7 sets, daily range): BP systolic 119–133; BP diastolic 65–71; PULSE 79–83; RESP 16–18; TEMP 36.4–37.1; O2SAT 90–94
[2022-10-29] MEDS: OXYCODONE IR 10 MG TABLET PO ×7 (00:13→23:07)
[2022-10-29] MEDS: GABAPENTIN 600 MG TABLET PO ×5 (00:13→23:07)
[2022-10-29] MEDS: ACETAMINOPHEN 325 MG TABLET 650 MG PO ×3 (00:13→20:18)
[2022-10-29] MEDS: SODIUM CHLORIDE 0.9% 1,000 ML 100 ML IV ×2 (01:25→14:20)
[2022-10-29] MEDS: VANCOMYCIN TROUGH 1 REQUEST MISC (05:57)
[2022-10-29 06:03] LABS: Hematocrit 29.7 % (36-46); Hemoglobin 8.3 g/dL (12.0-16.0); Mean Corpuscular HGB Conc 27.9 % (30-36); Mean Corpuscular Hemoglobin 16.8 PG (26-34); Mean Corpuscular Volume 60.3 fL (80-100); Platelet Count 398 X10^3/uL (150-400); Red Blood Cell Count 4.93 X10^6/uL (4.0-5.2); Red Cell Distribution Width 21.9 % (11.6-14.8); White Blood Cell Count 5.4 X10^3/uL (4.5-11.0)
[2022-10-29 06:04] LABS: HEMOLYSIS < 15 (0-50); Iron 16 ug/dL (37-170)
[2022-10-29 06:06] LABS: BUN Creatinine Ratio 5.8 (6-22); Blood Urea Nitrogen 3 mg/dL (7-17); Calcium 8.7 mg/dL (8.4-10.2); Carbon Dioxide 31 mmol/L (22-32); Chloride 106 mmol/L (98-107); Estimated Glomerular Filt Rate > 60 mL/min (>60); Glucose 96 mg/dL (70-100); HEMOLYSIS < 15 (0-50); Potassium 3.7 mmol/L (3.4-5.1); Sodium 139 mmol/L (137-145)
[2022-10-29 06:15] LABS: Percent Iron Saturation 4 % (15-50); Total Iron Binding Capacity 358 ug/dL (265-497); Transferrin 285 mg/dL (206-381)
--- NOTE | 2022-10-29 07:47 | P.PN_ITS ---
Subjective Subjective Interval history: Patient's pain currently well controlled in her R leg. We are awaiting wound care for biopsy on 10/31. Will need dressing recs as well. Exam Vital Signs (past 8 hours): - 10/29/22 02:00 10/29/22 05:41 Temperature 97.6 F Pulse Rate 79 Respiratory Rate 16 Blood Pressure 119/65 Pulse Oximetry 90 L 92 Oxygen Delivery Method Room Air Oxygen Flow Rate 0 Oxygen Delivery Method Room Air Oxygen Flow Rate 0 Narrative Exam Narrative: GEN: no acute distress CV: regular rate and rhythm PULM: clear bilaterally ABD: soft, nontender SKIN: confluent ulcerations of mojica extentending around to calf, with purulent drainage, macerated and erythematous skin around wound, non-malodorous, signi ficantly painful to the touch Objective Labs 10/29/22 05:25 10/29/22 05:25 Labs: Laboratory Results - last 24 hr 10/29/22 10/29/22 10/29/22 05:25 05:25 05:25 WBC 5.4 RBC 4.93 Hgb 8.3 L Hct 29.7 L MCV 60.3 L MCH 16.8 L MCHC 27.9 L RDW 21.9 H Plt Count 398 Sodium 139 Potassium 3.7 Chloride 106 Carbon Dioxide 31 BUN 3 L Creatinine 0.52 Estimated GFR > 60 BUN/Creatinine Ratio 5.8 L Glucose 96 Calcium 8.7 Iron TIBC % Saturation Transferrin Vancomycin Trough 10.0 10/29/22 05:25 WBC RBC Hgb Hct MCV MCH MCHC RDW Plt Count Sodium Potassium Chloride Carbon Dioxide BUN Creatinine Estimated GFR BUN/Creatinine Ratio Glucose Calcium Iron 16 L TIBC 358 % Saturation 4 L Transferrin 285 Vancomycin Trough [facility] Social History household members: none Smoking Status: Current every day smoker Assessment & Plan Assessment & Plan narrative: 1. Infected right leg wound with chronic ulcers -the etiology of her ulcers remains unclear -she has had workup in multiple institutions with not clear diagnosis, and no recent follow up with wound care or derm -etiologies considered include eczema, atopic dermatitis, and self inflicted -her chronic wound is now acutely infected -mri imaging shows no bone involvement or abscess -imaging does show concern for possible myositis -will empirically treat her with vanc, cefepime, fluconazole -did get bacterial swab -get viral swab for vzv, hsv -wound care consulted to assist with management of possible debridement and question of need for wound vac -have requested from wound care two biopsies, both of the ulcer border, one sent for path, one sent for cultures -patient states she is in significant pain, ordered home dose of oxycodone 10mg, with dilaudid IV for breakthrough -she is requesting topical lidocaine for pain control, q8h viscous lidocaine ordered -spoke with derm and sent pictures, they think could be pyoderma gangrenosum and suggest possible dapsone or topical tacrolimus -spoke with pharmacy about ordering dapsone or topical tacrolimus
[2022-10-29] MEDS: HYDROMORPHONE 1 MG INJ IV ×2 (08:43→20:20)
[2022-10-29] MEDS: VANCOMYCIN 1,000 MG/200 ML PIGGYBACK 200 MG IV ×3 (08:58→23:07)
[2022-10-29] MEDS: LORATADINE 10 MG TABLET PO (08:59)
[2022-10-29] MEDS: DULOXETINE 30 MG CAPSULE 90 MG PO (08:59)
[2022-10-29] MEDS: ENOXAPARIN 40 MG/0.4 ML SYRINGE SUBCUT (08:59)
[2022-10-29] MEDS: FLUCONAZOLE 100 MG TABLET PO (08:59)
[2022-10-29] MEDS: CEFEPIME 1 GM in SODIUM CHLORIDE 0.9% 100 ML IV (10:49)
[2022-10-29] MEDS: LIDOCAINE VISCOUS 2% 15 ML SOLUTION TOP ×2 (10:49→19:01)
--- NOTE | 2022-10-29 13:13 | CM.DPNOTE ---
Met with patient and her dad at bedside to ascertain current wound care plan/regimen. State she has been seeing Dr. Gardner at [facility] beside the [facility], but state she does not want to return there. States she previously has seen Dr. Torres at [facility] in [place] two years ago and had a auto immune workup without a diagnosis. States does not want to return to [facility] as the drive is too far and hurts her back. States she is disabled, cannot work, and on SSDI secondary to her back pain. Continued to see her pain clinic MD at [facility] for long-term opiates. States she will think about where to go next for ongoing wound care. Currently wound on right lower leg is open, no dressing and states she prefers this as any dressing is too painful. States that Bounty paper towels work best at home because they don't stick to open wound. Remains on IV Vanc and Cefepime. CM team following for further medical/surgical progression of care.
[2022-10-30] VITALS (9 sets, daily range): BP systolic 117–141; BP diastolic 68–84; PULSE 72–79; RESP 16–18; TEMP 36.4–36.9; O2SAT 90–94; BMI 23.3
[2022-10-30] MEDS: OXYCODONE IR 10 MG TABLET PO ×7 (02:02→22:00)
[2022-10-30] MEDS: SODIUM CHLORIDE 0.9% 1,000 ML 100 ML IV ×2 (02:03→13:23)
--- NOTE | 2022-10-30 05:35 | PC.NURSE ---
Pt getting her oxydone 10 mg po every 3 hours around the clock. Her pain has been 8/10 to her right leg. Pt now has a cradle at the foot of the bed to prevent the bedding from touching her wounds. Pt also educated tonight on smoking sensation and wound healing tonight. Daughter at the bedside attending to her mother's needs.
[2022-10-30] MEDS: GABAPENTIN 600 MG TABLET PO ×3 (06:47→18:58)
[2022-10-30] MEDS: CEFEPIME 2 GM in SODIUM CHLORIDE 0.9% 100 ML IV ×2 (06:47→18:59)
--- NOTE | 2022-10-30 07:57 | PM.PN.1 ---
Subjective Subjective Interval history: Patient still having pain in her leg. She is open to coming to [facility] regularly for treatment instead of [place] since it is further to drive. Exam Vital Signs (past 8 hours): - 10/30/22 00:00 10/30/22 04:00 Temperature 97.9 F 98.2 F Pulse Rate 77 78 Respiratory Rate 18 17 Blood Pressure 117/70 125/70 Pulse Oximetry 92 92 Oxygen Delivery Method Room Air Oxygen Flow Rate 0 Narrative Exam Narrative: GEN: no acute distress CV: regular rate and rhythm PULM: clear bilaterally ABD: soft, nontender SKIN: confluent ulcerations of mojica extending around to calf, with purulent drainage, macerated and erythematous skin around wound, non-malodorous, significantly painful to the touch Objective Labs 10/29/22 05:25 10/30/22 08:15 PFSH Social History household members: none Smoking Status: Current every day smoker Assessment & Plan Assessment & Plan narrative: 1. Infected right leg wound with chronic ulcers -the etiology of her ulcers remains unclear -she has had workup in multiple institutions with not clear diagnosis, and no recent follow up with wound care or derm -etiologies considered include eczema, atopic dermatitis, and self inflicted -her chronic wound is now acutely infected -mri imaging shows no bone involvement or abscess -imaging does show concern for possible myositis -will empirically treat her with vanc, cefepime, fluconazole -did get bacterial swab -get viral swab for vzv, hsv -have requested from wound care two biopsies, both of the ulcer border, one sent for path, one sent for cultures -patient states she is in significant pain, ordered home dose of oxycodone 10mg, with dilaudid IV for breakthrough -she is requesting topical lidocaine for pain control, q8h viscous lidocaine ordered -she notes that derm previously ruled out pyoderma gangrenosum -waiting on wound care consult and recs, she is ok with seeing wound care at [facility] for ongoing treatment since it is closer to her home in [place]
[2022-10-30 08:33] LABS: BUN Creatinine Ratio 15.4 (6-22); Blood Urea Nitrogen 8 mg/dL (7-17); Carbon Dioxide 29 mmol/L (22-32); Chloride 107 mmol/L (98-107); Estimated Glomerular Filt Rate > 60 mL/min (>60); Glucose 94 mg/dL (70-100); HEMOLYSIS < 15 (0-50); Potassium 3.7 mmol/L (3.4-5.1); Sodium 140 mmol/L (137-145)
[2022-10-30 08:43] LABS: Vancomycin Trough 10.6 ug/mL (10-20)
[2022-10-30] MEDS: FLUCONAZOLE 100 MG TABLET PO (09:33)
[2022-10-30] MEDS: DULOXETINE 30 MG CAPSULE 90 MG PO (09:33)
[2022-10-30] MEDS: LORATADINE 10 MG TABLET PO (09:33)
[2022-10-30] MEDS: VANCOMYCIN 1,000 MG/200 ML PIGGYBACK 200 MG IV ×2 (09:34→17:00)
[2022-10-30] MEDS: ACETAMINOPHEN 325 MG TABLET 650 MG PO ×2 (09:34→19:55)
[2022-10-30] MEDS: ENOXAPARIN 40 MG/0.4 ML SYRINGE SUBCUT (09:34)
[2022-10-30] MEDS: LIDOCAINE VISCOUS 2% 15 ML SOLUTION TOP ×2 (10:12→19:00)
[2022-10-30] MEDS: HYDROMORPHONE 1 MG INJ IV ×5 (10:13→23:02)
[2022-10-30] MEDS: CYCLOBENZAPRINE 10 MG TABLET PO (10:29)
--- NOTE | 2022-10-30 15:59 | CM.DPC ---
DCP Continued: PSYCHOLOGY LECTURER reviewed EMR. Per hospitalist, wound care will be here tomorrow to help determine future wound care needs. unclear at this time if patient will need to d/c with IV antibiotics. PSYCHOLOGY LECTURER entered room and introduced self and role. Patient sitting up in bed watching football and accompanied by father at bedside. Reports the sheets stuck to her wound in her leg and ripped off the top layer. Reports being in a lot of pain. Reports plan is still pending what wound care doc and home IV antibiotic needs at this time. Continues to deny HH or SNF at this time. Plan: pending wound care and IV antibiotics needs. Likely home with family support. CM team will continue to follow closely. BLANCA Suggs
[2022-10-30] MEDS: TIZANIDINE 4 MG TABLET PO (22:00)
[2022-10-31] VITALS: BP 132/83; PULSE 64; RESP 17; TEMP 36.7; O2SAT 92
[2022-10-31] MEDS: VANCOMYCIN 1,000 MG/200 ML PIGGYBACK 200 MG IV ×2 (01:05→09:23)
[2022-10-31] MEDS: SODIUM CHLORIDE 0.9% 1,000 ML 100 ML IV (01:05)
[2022-10-31] MEDS: GABAPENTIN 600 MG TABLET PO ×3 (01:06→12:15)
[2022-10-31] MEDS: OXYCODONE IR 10 MG TABLET PO ×5 (01:06→14:17)
--- NOTE | 2022-10-31 01:57 | PC.NURSE ---
Addendum entered by Esthela Case R.N. 10/31/22 04:59: pt continues to need pain meds around the clock, switching from oxycodone to dilaudid IVP every 3 hours. Pt IV to left AC was leaking, iv discontinued. pt now has only and IV to her left hand. Pt could benefit from a midline or either picc line if continuing with the current IV AB regimen. Original Note: Pt was found picking at wound multiple times tonight. One time she had a glove on and another time she has paper towels around her wounds. Pt educated that this is not benefitial to her wound healing.
[2022-10-31] MEDS: HYDROMORPHONE 1 MG INJ IV ×4 (02:31→12:15)
[2022-10-31 04:00] VITALS: BP 138/74; PULSE 63; RESP 17; TEMP 36.3; O2SAT 92
[2022-10-31] MEDS: ACETAMINOPHEN 325 MG TABLET 650 MG PO (05:48)
[2022-10-31] MEDS: LIDOCAINE VISCOUS 2% 15 ML SOLUTION TOP ×2 (05:52→13:34)
[2022-10-31] MEDS: CEFEPIME 2 GM in SODIUM CHLORIDE 0.9% 100 ML IV (06:46)
[2022-10-31 08:00] VITALS: BP 127/73; PULSE 65; RESP 16; TEMP 36.3; O2SAT 92
--- NOTE | 2022-10-31 08:46 | PM.PN.1 ---
Subjective Subjective Interval history: No overnight issues. Wound is stable. Software Security Architect dyspnea. Exam Vital Signs (past 8 hours): - 10/31/22 04:00 Temperature 97.3 F L Pulse Rate 63 Respiratory Rate 17 Blood Pressure 138/74 Pulse Oximetry 92 Oxygen Delivery Method Room Air Oxygen Flow Rate 0 Narrative Exam Narrative: NAD, normal speech Lungs CTA, normal effort CV RRR with 3/6 SM No abdomen distension No leg edema. Right leg with large medial LE wound, transdermal. No red. Objective Labs 10/29/22 05:25 10/30/22 08:15 PFSH Social History household members: none Smoking Status: Current every day smoker Assessment & Plan Assessment & Plan narrative: 1. Infected right leg wound with chronic ulcers -the etiology of her ulcers remains unclear -she has had workup in multiple institutions with not clear diagnosis, and no recent follow up with wound care or derm -etiologies considered include eczema, atopic dermatitis, and self inflicted -her chronic wound is now acutely infected -mri imaging shows no bone involvement or abscess -will empirically treat her with vanc, cefepime, fluconazole -have requested from wound care two biopsies, both of the ulcer border, one sent for path, one sent for cultures -patient states she is in significant pain, ordered home dose of oxycodone 10mg, with dilaudid IV for breakthrough -she is requesting topical lidocaine for pain control, q8h viscous lidocaine ordered -she notes that derm previously ruled out pyoderma gangrenosum -Wound consult today and possible discharge home. Time Spent With Patient Time with patient: 30 to 49 minutes with 50% spent counseling/coordinating care
[2022-10-31] MEDS: ENOXAPARIN 40 MG/0.4 ML SYRINGE SUBCUT (09:33)
[2022-10-31] MEDS: DULOXETINE 30 MG CAPSULE 90 MG PO (09:33)
[2022-10-31] MEDS: LORATADINE 10 MG TABLET PO (09:33)
--- NOTE | 2022-10-31 10:22 | CM.DPC ---
DCP Cont: Discussed patient during team rounds. Wound provider, Dr. Rand, is supposed to come over to see patient, and will follow up at [facility]. Patient could possibly discharge home today, and would follow up with [facility] for future appointments. Verified with hospitalist that patient should be able to go home on oral ABO. P: DCP to continue to follow for any needs. Juventino, nurse coordinator, stated that he would call over at [facility] to see when provider is coming over. Plan is home when stable, could be today. Katerine Delaney RN/Adoption Specialist
[2022-10-31 12:00] VITALS: BP 127/70; PULSE 71; RESP 16; TEMP 36.6; O2SAT 91
--- NOTE | 2022-10-31 13:02 | PM.CN ---
History of Present Illness Consult details Date Patient Seen: 10/31/22 Time Patient Seen: 12:15 Chief complaint: infected ulcer rt lower leg,sent by [facility] Narrative: The patient is a 57-year-old female with a long history of eczema who was admitted October 27 for treatment of cellulitis of the right lower extremity associated with a chronic nonhealing wound. The patient reports that the wound on her leg has been present for almost 2 years and has been gradually enlarging. She was previously treated at the [facility] wound center and some success was achieved with using Unna boot dressing changes. Patient was last seen November 09, 2021 and has been receiving care at the [facility] wound center since then. Her most recent treatment consists of Medi Honey, topical lidocaine, and Adaptic. The patient reports that no matter what type of dressing she uses they always very painful when they are removed and cause the wounds to enlarge. Dr. Melo and Dr. Bello have both treated the patient in the past and they both felt that the ulcers were self inflicted and a manifestation of a psychological problem. The patient has also previously been treated at the [facility] however she has not been back for follow up in several years. The patient reports that she has had success when using prednisone in the past however the ulcers always get larger whenever she stops taking it. The patient refuses to use Unna boots because she claims they cause her to have severe itching. She has not had any success with any other treatment modalities. The patient does not want to have a dressing on since they cause her so much pain and would prefer to leave the wound open to air. The patient is a current every day cigarette smoker. She denies any recent fever or chills nor has he had any other recent changes in her overall health. Meds Home Medications and Allergies Home Medications Medication Instructions Recorded Confirmed Type [BLEACH BATH 5%] 5 % Not Applicable 3XW ##0 01/28/16 10/27/22 History acetaminophen 500 mg tablet 500 mg PO TID-QID PRN Pain (Scale 01/28/16 10/27/22 History (Tylenol Extra Strength) Score 1-3) ##0 acyclovir 400 mg tablet 400 mg PO QAM ##0 01/28/16 10/27/22 History cetirizine 10 mg tablet 10 mg PO QAM ##0 01/28/16 10/27/22 History mupirocin 2 % topical ointment 1 applic PRN PRN Rash ##0 01/28/16 10/27/22 History pseudoephedrine HCl 30 mg tablet 120 mg PO QAM ##0 01/28/16 10/27/22 History albuterol sulfate 90 mcg/actuation 2 puff inhalation Q4-6H PRN 10/27/22 10/27/22 History aerosol inhaler Shortness Of Breath Or Wheezing cyclobenzaprine 10 mg tablet 10 mg PO BID PRN Pain (Scale Score 10/27/22 10/27/22 History 4-6) duloxetine 30 mg capsule,delayed 90 mg PO DAILY 10/27/22 10/27/22 History release gabapentin 600 mg tablet 600 mg PO Q6H 10/27/22 10/27/22 History meloxicam 15 mg tablet 15 mg PO DAILY 10/27/22 10/27/22 History oxycodone-acetaminophen 10 mg-325 1 tab PO Q4-6H PRN pain 10/27/22 10/27/22 History mg tablet tizanidine 4 mg tablet 4 mg PO BEDTIME 10/27/22 10/27/22 History Allergies Allergy/AdvReac Type Severity Reaction Status Date / Time Iodinated Contrast Media Allergy Severe Anaphylaxis Verified 10/27/22 18:31 citric acid [CITRIC ACID] Allergy Mild IMMEDIATLEY Verified 10/27/22 16:56 EXACERBATES EXCEMA ibuprofen [IBUPROFEN] Allergy Mild BREATHING Verified 10/27/22 16:56 COMPLICATIONS Review of Systems Constitutional Comments: No fever or chills Exam Vital Signs (past 8 hours): - 10/31/22 08:00 10/31/22 12:00 Temperature 97.4 F L 97.8 F Pulse Rate 65 71 Respiratory Rate 16 16 Blood Pressure 127/73 127/70 Pulse Oximetry 92 91 Oxygen Delivery Method Room Air Oxygen Flow Rate 0 Const Other: Well-developed well-nourished female, alert and oriented, no apparent distress HENTN Other: Normocephalic Skin Other: Very large nearly circumferential full-thickness ulceration right lower extremity with irregular borders and slough and biofilm, no surrounding erythema Extrem Other: No edema Objective Labs 10/29/22 05:25 10/30/22 08:15 PFSH Social History household members: none Tobacco & Substance Use Smoking Status: Current every day smoker Assessment & Plan Assessment and plan (1) Non-pressure chronic ulcer of right calf with fat layer exposed: Status: Acute (2) Severe eczema: Status: Acute Plan The patient has very large nearly circumferential ulceration associated with eczema and is possibly self inflicted. The patient refuses any type of dressing since they stick to her wound and cause more pain. She also refuses prednisone. I have also encouraged the patient to go back and see the geophysical laboratory chief however she does not want to do so. Options for treating her are limited because of her refusal to accept any of our recommendations. She is agreeable to applying a light coat of Silvadene over the wound and leaving it open to air. This may help reduce the risk of infection and help with moisture balance. Follow up at wound center after discharge. Lengthy discussion was held with the patient and her family regarding treatment options. Old records were reviewed. Care coordinated with hospitalist and nursing staff. Time Spent With Patient Time with patient: 50 to 69 minutes with 50% spent counseling/coordinating care
--- NOTE | 2022-10-31 13:26 | PM.DS.1 ---
History of Present Illness History of Present Illness Date Patient Seen: 10/31/22 Time Patient Seen: 13:27 Chief complaint: infected ulcer rt lower leg,sent by [facility] Narrative: Patient is a 57-year-old female with a history of eczema.? She presents with a right lower extremity wound x1.5 years.? She reports a history of many areas of eczema that turn into a chronic wounds.? She goes to woud clinic.? Most recently, she received 2 courses of Bactrim for wound infection without improvement.? She reports the wound clinic has been using some sort of honey impregnated product covered with Xeroform gauze over the wound.? Over the past several days, she is been feeling ill with chills and generalized achiness.? She took 2 home COVID tests, both of which were negative.? Discharge Providers Provider Date of admission: 10/27/22 21:43 Discharge Date: 10/31/22 Primary care physician: Francisco Pimentel DO Consults: 10/28/22 11:36 Consult to General Surgery Routine Comment: Consulting Provider: Todd Cardona Reason for consultation: leg wound, debridement? Has provider been notified: Yes 10/28/22 14:36 Consult to Wound Care Routine Comment: Consulting Provider: Francisca- Wound Care Discharge provider: Chuck Briceno MD Summary Hospital Course Discharge Diagnosis: Chronic right lower leg wounds. Infection of chronic leg wounds Eczema Chronic back pain Hospital Course: The patient was admitted and treated for SSi of her chronic right leg ulcers and wounds. She improved on antibiotics and cultures revealed MSSA. She was seen by wound care physician on the day of discharge. They agreed on a simple plan of Silvadene until close follow up at the [facility]. She was recently seen at the [place] wound clinic. She notes a long history of issues and no definitive diagnosis despite seeing multiple wound care specialists and dermatologists (including ). She is okay with the general plan and oral antibiotics at discharge. She indicates that she will probably follow up at the wound care clinic. Her daughter was present at the discussion. Status at Discharge Cognitive/behavioral status at discharge: at baseline, oriented Functional status at discharge: independent ambulation Overall status at discharge: patient is back to baseline Time Spent with Patient Time spent: Greater than 30 minutes Exam Vital Signs (past 8 hours): - 10/31/22 08:00 10/31/22 12:00 10/31/22 08:00 Temperature 97.4 F L 97.8 F Pulse Rate 65 71 Respiratory Rate 16 16 Blood Pressure 127/73 127/70 Pulse Oximetry 92 91 Oxygen Delivery Method Room Air Oxygen Delivery Method Room Air Oxygen Flow Rate 0 Narrative Exam Narrative: Seen and examined (see earlier progress note). Objective Imaging Leg MRI and Leg CT: Radiologist's impression: CT: 1. No CT evidence of osteomyelitis. ? 2. Suspected soft tissue ulceration medially in the distal lower leg.? No definite abscess collection is identified but evaluation is limited in the absence of intravenous contrast. ? 3. Effacement of the superficial fascia medially in the posterior compartment with associated muscle edema compatible with a myositis.? Necrotizing fasciitis, a clinical diagnosis, cannot be excluded.? MRI: 1. Areas of skin ulceration and subcutaneous edema are seen in the right lower leg compatible with the clinically reported skin margins.? No drainable fluid collection or abscess is seen. 2. No MR evidence of osteomyelitis. 3. Focal intramuscular edema at the distal medial aspect of the soleus muscle just proximal to the myotendinous junction is suspicious for myositis. Chest x-ray: Radiologist's impression: IMPRESSION:? No acute cardiopulmonary process. Tibia Xray: Radiologist's impression: IMPRESSION:? Soft tissue wound, without latia bony change. Labs 10/29/22 05:25 10/30/22 08:15 [facility], [facility] Social History household members: none Smoking Status: Current every day smoker Discharge Assessment & Plan Assessment and Plan Assessment: Chronic right lower leg wounds. Infection of chronic leg wounds Eczema Plan of Treatment: Oral antibiotics and close out patient follow up with [place] [facility]. Discharge Plan Discharge Plan Patient Disposition: Home Discharge orders & Medications Prescriptions: New cephalexin 500 mg capsule 500 mg PO TID Qty: 20 0RF silver sulfadiazine [SSD] 1 % cream 1 applic topical DAILY Qty: 50 0RF Rx Instructions: apply a 1.5 mm thickness daily. lidocaine 5 % ointment 1 applic topical DAILY Qty: 50 0RF Rx Instructions: apply daily for pain. Continued cetirizine 10 MG tablet 10 mg PO QAM Qty: 0 acyclovir 400 MG tablet 400 mg PO QAM Qty: 0 acetaminophen [Tylenol Extra Strength] 500 MG tablet 500 mg PO TID-QID PRN (Reason: Pain (Scale Score 1-3)) Qty: 0 mupirocin 2 % ointment 1 applic PRN PRN (Reason: Rash) Qty: 0 pseudoephedrine HCl 30 MG tablet 120 mg PO QAM Qty: 0 [BLEACH BATH 5%] 1 unit combo pack 5 % Not Applicable 3XW Qty: 0 Rx Instructions: Dilute, soak 15 min cyclobenzaprine 10 mg tablet 10 mg PO BID PRN (Reason: Pain (Scale Score 4-6)) gabapentin 600 mg tablet 600 mg PO Q6H tizanidine 4 mg tablet 4 mg PO BEDTIME meloxicam 15 mg tablet 15 mg PO DAILY oxycodone-acetaminophen 10-325 mg tablet 1 tab PO Q4-6H PRN (Reason: pain) albuterol sulfate 90 mcg/actuation Hfa Aerosol Inhaler 2 puff INHALATION Q4-6H PRN (Reason: Shortness Of Breath Or Wheezing) duloxetine 30 mg capsule,delayed release(DR/EC) 90 mg PO DAILY Follow up/Referrals: Francisco Pimentel DO [Primary Care Provider] - Diet/Activity/Treatments Diet: Diet as Tolerated Activity: as tolerated Skin/Wound/Dressing Care Report to your healthcare provider any signs of infection, such as:: chills, fever and increased pain Dressing: Silvadine to ulcer, no dressing on top of Visit Report/Discharge Packet Stand Alone Forms: Patient Portal/API Discharge Data Primary Care Provider: Francisco Pimentel Quality MIPS - DC The patient has a history of heart transplant or Left Ventricular Assist Device (LVAD). If yes, STOP here.: No The patient has current or prior documentation of left ventricular ejection fraction (LVEF) less than or equal to 40%, or moderate or severely depressed left ventricular systolic function.: No
--- NOTE | 2022-10-31 13:47 | PC.NURSE ---
Addendum entered by Kodak Hemphill R.N. 10/31/22 16:16: Raymundo RN able to review discharge instructions with patient. Patient is to call wound care to schedule up follow up appointment. Patient states she is able to stop at [facility] on her way home. Original Note: Per patient she is unable to have wound covered in any type of dressing, as it causes unbearable pain and makes the wound grow larger as the eczema expands where the dressing touches. Her daughter reports that she has tried every type of dressing that has been available to her, except for other treatments (not specified) that are too expensive so they have not been able to afford financially. Patient agrees to allow this RN to cleanse wound bed and surrounding skin with sterile saline, patted dry and lidocaine viscous applied. Patient refuses covering wound, she lays it over pillows at the knee and at the heel so that her lower leg is not touching anything at all, and leaves the area open to air. She discussed wound care and plan at length with wound care MD and the hospitalist Dr. Briceno. This RN awaiting orders and anticipating patient discharge.
--- NOTE | 2022-11-07 18:43 | PC.NURSE ---
Late entry: on 10/28/22 at 1500 This RN administered 10mg PO oxycodone for 9/10 pain to patient's R Leg.
== END 2022-10-31 15:30 | disposition home or self-care (01) | DRG 556 ==
LOC: ED 20:51 → AC 22:09
PROVIDERS: Internal Medicine; Physician Assistant; Admitting Provider Hospitalist; Emergency Provider Emergency Medicine; PCP Family Medicine; Referring Provider Physician Assistant Medical; Visit Provider Hospitalist
DX: M60.9 Myositis, unspecified (principal); L97.212 Non-pressure chronic ulcer of right calf with fat layer exposed; L30.9 Dermatitis, unspecified; B95.61 Methicillin susceptible Staphylococcus aureus infection as the cause of diseases classified elsewhere; G89.29 Other chronic pain; M54.9 Dorsalgia, unspecified; Z53.29 Procedure and treatment not carried out because of patient's decision for other reasons
CPT/HCPCS: 36415; 71045; 73590; 73700; 73720; 80048; 80053; 80202; 81001; 81003; 83540; 83550; 83605; 85025; 85027; 85651; 86140; 87040; 87070; 87075; 87077; 87086; 87147; 87186; 87205; 87252; 96365; 96367; 99233; 99284; J0692; J1170; J1650; J2270; J2405; J7050

== ENCOUNTER → 2022-11-23 14:19 | Outpatient (CLI) | payer MEDICARE, SELFPAY ==
[2022-10-30 00:48] VITALS: BMI 23.3
== END ==
PROVIDERS: PCP Family Medicine; Referring Provider Hospitalist; Visit Provider Surgery
DX: S81.801A Unspecified open wound, right lower leg, initial encounter (principal); L20.9 Atopic dermatitis, unspecified; L53.9 Erythematous condition, unspecified
CPT/HCPCS: 87070; 87075; 87077; 87147; 87186; 87205; 99213; 99214